=== PATIENT | male | born 2000 | race Caucasian/White ===

== ENCOUNTER 2024-07-20 15:59 | Emergency (ER) | payer MEDICAID ==
[~2024-07-20] VITALS: Ht 182.9 cm; Wt 120.0 kg
[2024-07-20 16:00] VITALS: O2SAT 97
[2024-07-20] MEDS: SODIUM CHLORIDE 0.9% 1,000 ML IV ONE (16:46)
[2024-07-20 17:02] LABS: BASOPHILS % 0.3 % (0.0-2.0); EOSINOPHILS % 2.7 % (0.0-5.0); HEMATOCRIT. 43.4 % (42.0-52.0); HEMOGLOBIN. 14.7 g/dL (14.0-18.0); LYMPHOCYTES % 24.9 % (20.0-50.0); MEAN CORPUSCULAR HEMOGLOBIN 29.5 pg (28.0-32.0); MEAN CORPUSCULAR HGB CONC 33.9 g/dL (31.0-37.0); MEAN CORPUSCULAR VOLUME 86.9 fL (80.0-94.0); MEAN PLATELET VOLUME 8.4 fl (7.4-10.4); MONOCYTES % 5.1 % (2.0-8.0); PLATELET 272 x1000/uL (130-400); RED BLOOD CELL COUNT 4.99 mill/uL (4.7-6.1); RED CELL DISTRIBUTION WIDTH 13.8 % (11.6-14.6); WHITE BLOOD COUNT 7.8 x1000/uL (4.5-11.0)
[2024-07-20 17:07] LABS: CHLORIDE 109 mEq/L (98-107); POTASSIUM 3.8 mEq/L (3.5-5.1); SODIUM 140 mEq/L (136-145)
[2024-07-20 17:08] LABS: CARBON DIOXIDE 26 mEq/L (21-32)
[2024-07-20 17:09] LABS: CALCIUM 9.6 mg/dL (8.7-10.4)
[2024-07-20 17:13] LABS: CREATININE 1.1 mg/dL (0.6-1.3); GLUCOSE 70 mg/dL (70-105); UREA NITROGEN BLOOD 13 mg/dL (9-23)
[2024-07-20 17:30] LABS: ETHANOL BLOOD < 10 mg/dL (<10)
[2024-07-20] MEDS ORDERED: CLAR10 MT (19:45)
[2024-07-20 20:25] VITALS: BP 102/54; PULSE 58; RESP 15; TEMP 36.55848; O2SAT 98
== END 2024-07-20 20:25 | disposition home or self-care (01) ==
LOC: ER 15:59
DX: R55 Syncope and collapse (principal); R42 Dizziness and giddiness; R09.81 Nasal congestion
CPT/HCPCS: 80048; 80320; 85025; 36415; 93005; 96360; 99284; J7030; Z7610 ×2; G0480